=== PATIENT | female | born 1945 | race Caucasian/White ===

== ENCOUNTER 2019-09-04 15:09 | Inpatient (IN) ==
--- NOTE | 2019-09-04 15:40 | Diag Imaging Result Doc PS360 ---
FEMUR MIN 2 VIEWS LEFT - 09/04/2019 INDICATION: fall, pain TECHNIQUE: Four views COMPARISON: None FINDINGS: There is a badly displaced spiral fracture of the proximal left femur shaft, below the trochanters. No dislocation. 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 IMPRESSION: Badly displaced spiral fracture of the proximal left femur shaft. Electronically signed by Joshua Minor 09/04/2019 3:38 PM
--- NOTE | 2019-09-04 15:40 | Diag Imaging Result Doc PS360 ---
CHEST-1 VIEW - 09/04/2019 INDICATION: FALL COMPARISON: 07/25/2018 FINDINGS: The lungs are normally expanded and clear. Heart size and mediastinal contours are normal. No pneumothorax or pleural effusion. Stable right chest port in good position. IMPRESSION: Negative exam. Electronically signed by Joshua Minor 09/04/2019 3:37 PM
[2019-09-04] MEDS ORDERED: MORPHINE IV ONE (16:04)
--- NOTE | 2019-09-04 16:32 | EKG Report ---
Test Performed on : 09/04/2019 4:18:29 PM Test Reason : FX L FEMUR Blood Pressure : / mmHG Vent. Rate : 092 BPM Atrial Rate : 092 BPM P-R Int : 160 ms QRS Dur : 092 ms QT Int : 378 ms P-R-T Axes : 037 -23 074 degrees QTc Int : 467 ms Sinus rhythm. with occasional premature ventricular complexes. Possible Left atrial enlargement Left ventricular hypertrophy Nonspecific T wave abnormality Abnormal ECG When compared with ECG of 17-APR-2013 09:29, premature ventricular complexes. are now present Nonspecific T wave abnormality, worse in Lateral leads Unconfirmed Result
[2019-09-04 16:52] LABS: URINE SOURCE CATH
[2019-09-04 17:07] LABS: BILIRUBIN URINE NEGATIVE (NEGATIVE); BLOOD URINE NEGATIVE (NEGATIVE); COLOR YELLOW; GLUCOSE URINE NEGATIVE (NEGATIVE); KETONE URINE NEGATIVE (NEGATIVE); LEUKOCYTES URINE NEGATIVE (NEGATIVE); NITRITE URINE NEGATIVE (NEGATIVE); PROTEIN URINE NEGATIVE (NEGATIVE); SP GRAVITY URINE 1.011; TURBIDITY URINE CLEAR (CLEAR); UR EPITHELIAL CELLS <10 /HPF (<10); URINE BACTERIA NEGATIVE /HPF; URINE RBC <10 /HPF (<10); URINE WBC <10 /HPF (<10); UROBILINOGEN URINE NORMAL (NORMAL)
[2019-09-04 17:12] LABS: BASO# 0.05 X1000 (0.0-0.2); BASO% 0.4 % (0.0-0.8); EOS# 0.14 X1000 (0.0-0.7); EOS% 1.1 % (0.0-10.0); HEMATOCRIT 38.6 % (37.0-47.0); HEMOGLOBIN 12.5 g/dL (12.0-16.0); IMM GRAN# 0.05 X1000 (0.0-0.04); IMM GRAN% 0.4 % (0.0-0.5); LYMPH# 1.22 X1000 (1.2-3.4); LYMPH% 9.9 % (20.5-51.1); MCH 29.8 PG (27-31); MCHC 32.4 g/dL (33-37); MCV 91.9 FL (81-99); MONO# 0.67 X1000 (0.11-0.59); MONO% 5.4 % (1.7-9.3); MPV 9.1 FL (7.4-10.4); NEUT# 10.23 X1000 (1.4-6.5); NEUT% 82.8 % (42.2-75.2); PLT 314 X1000 (130-400); RDW 14.3 % (11.5-14.5); WBC 12.36 X1000 (4.8-10.8)
[2019-09-04 17:15] LABS: PROTIME 13.3 Seconds (11.0-16.0)
[2019-09-04 17:16] LABS: PTT 27.4 Seconds (22.3-41.8)
[2019-09-04 17:30] LABS: AGAP 15; ALB/GLOB RATIO 1.1; ALBUMIN 4.1 g/dL (3.5-5.0); ALKALINE PHOSPHATASE 75 U/L (32-104); BUN 14 mg/dL (8-22); CALCIUM 9.5 mg/dL (8.8-10.2); CHLORIDE 99 mmol/L (98-107); COSMO 283; CREATININE 0.9 mg/dL (0.5-0.9); ESTIMATED GFR > 60; GLUCOSE 114 mg/dL (70-104); GOT 39 U/L (10-30); GPT 26 U/L (10-36); POTASSIUM 3.4 mmol/L (3.5-5.1); SODIUM 141 mmol/L (136-145); TCO2 27 mmol/L (25-35); TOTAL BILIRUBIN 0.27 mg/dL (0.20-1.00); TOTAL PROTEIN 7.7 g/dL (6.3-8.3)
[2019-09-04] MEDS ORDERED: KEFZOL 1 GM/D5W 1 GM/50 ML IVPB IV ONE (18:00)
[2019-09-04] MEDS ORDERED: DILAUDID IV ONE (18:10)
--- NOTE | 2019-09-04 19:36 | ORTHOPAEDICS CONSULTATION ---
DATE: 09/04/2019 REASON FOR CONSULT: Left femur fracture. HISTORY OF PRESENT ILLNESS: Ms. Ayala is a 73-year-old female with a past medical history of metastatic breast cancer and hypertension, who presented to the ER today after a fall. She states that she was helping her up the stairs after his back surgery today when she felt a pop in her left leg and her leg gave way on her. She states that she has been having pain in this left leg for some time now and actually was going to make an appointment with Dr. Mornoy about it. She does have a history of breast cancer that was initially diagnosed in 2008 that had metastasized to a rib in 2011 as well as to her lung at a later date. She is undergoing treatment for this by Dr. Soria at this time. X-rays in the ER revealed a displaced spiral fracture of the proximal left femur shaft. Orthopedics has been consulted for this. PAST MEDICAL HISTORY: 1. Metastatic breast cancer. 2. Hypertension. PAST SURGICAL HISTORY: Is right mastectomy, hysterectomy, and port placement. ALLERGIES: She has no known drug allergies. FAMILY HISTORY: Noncontributory. REVIEW OF SYSTEMS: Positive for left hip pain that has been an ongoing problem for some time, pain in the left hip, but it has developed acutely since this fall. She denies any fever, chills, or vomiting. Otherwise review of systems is negative except as mentioned in the HPI. PHYSICAL EXAM: General: Ms. Ayala is lying on the ER stretcher at this time in no acute distress. Her left lower extremity is shortened and externally rotated. She has obvious swelling to her left hip region. There is no break in the skin. This area is very tender to even gentle palpation. She is able to dorsiflex and plantar flex her left foot without any problem. Her sensation is intact distally. She is alert and oriented x3. ASSESSMENT: Displaced spiral fracture of the left femur. PLAN: Ms. Ayala will be admitted to the hospitalist service this evening. She will be made NPO after midnight and receive a dose of Kefzol prior to surgery. Risks and benefits of surgery were discussed with Ms. Ayala to include risk of anesthesia, bleeding, blood clot, nerve injury, infection. Ms. Ayala wishes to proceed with surgery at this time. Dr. Monroy will be seeing her prior to surgery. Since she does have a past medical history of metastatic breast cancer, and has been having pain in this region for some time before this fall, and given the mechanism of her injury, we will send a specimen for pathology to ensure this is not a pathological fracture. All questions were answered. Dictated by KRYSTLE Ernst for Orestes Monroy MD cc: Orestes Monroy MD [facility]
[2019-09-04] MEDS ORDERED: TYLENOL PO PRN (20:23)
[2019-09-04] MEDS ORDERED: MORPHINE IV PRN (20:23)
[2019-09-04] MEDS: LIORESAL PO SCH (21:00)
[2019-09-04] MEDS: ZOLOFT PO SCH (21:00)
[2019-09-04] MEDS: ZOFRAN IV PRN (21:32)
[2019-09-05] MEDS ORDERED: NS 1,000 ML IV SCH (00:01)
--- NOTE | 2019-09-05 05:06 | HISTORY AND PHYSICAL ---
PRIMARY CARE PROVIDER: Bear Fuentes MD ONCOLOGIST: Dr. Soria. CHIEF COMPLAINT: [place] a pop in her left leg and then fell. HISTORY OF PRESENT ILLNESS: Ms. Ayala is a 73-year-old female with a past medical history of recurrent metastatic breast cancer. She reports she has had 3 bouts of breast cancer, 2 rounds of chemo as well as radiation treatment. She goes back for maintenance every 3 weeks. Hypertension. Reports today, she was helping her up the stairs after he had back surgery. She felt a pop in her left leg and then she fell. She did not hit her head. She denied any symptoms prior to falling. No dizziness. No chest pain. No shortness of breath. She denies any recent fever, chills, abdominal, urinary, or GI issues. She did report that she has been having some issues with pain in this left leg, and had been meaning to see an orthopedic about it. Imaging in the ER revealed a displaced spiral fracture of the proximal left femur shaft. Oncology was consulted. They have seen the patient, and will be doing surgery in the morning. We will continue with pain regimen. PAST MEDICAL HISTORY: Metastatic breast cancer and hypertension. PAST SURGICAL HISTORY: Right mastectomy, hysterectomy, and port placement. ALLERGIES: No known drug allergies. FAMILY HISTORY: Reviewed and noncontributory. HOME MEDICATIONS: 1. Zoloft 50 mg p.o. at bedtime. 2. Baclofen 2.5 mg p.o. b.i.d. 3. Femara 2.5 mg p.o. daily. 4. Losartan/hydrochlorothiazide 125 1 tab p.o. daily. 5. Lyrica 75 mg p.o. daily. REVIEW OF SYSTEMS: Twelve-point review of systems completely negative except for those mentioned in HPI. PHYSICAL EXAMINATION: VITAL SIGNS: Temperature 97 degrees, heart rate 97, respirations 16, blood pressure 148/87, and O2 is 94% on room air. GENERAL: Ms. Ayala is a pleasant 73-year-old female who is lying in her room in the bed in no acute distress. HEENT: Atraumatic, normocephalic. PERRL. NECK: Supple. Trachea midline. CARDIOVASCULAR: S1, S2 appreciated. No murmurs, gallops, or rubs noted. RESPIRATORY: Lung sounds clear bilaterally. GI: Soft, nontender, and nondistended. Positive bowel sounds 4 quadrants. EXTREMITIES: Lower extremities with bilateral bounding pulses. No signs of clubbing or cyanosis. : White. NEUROLOGIC: No focal deficits noted. DIAGNOSTICS: Femur x-ray. Badly displaced spiral fracture of the proximal left femur shaft. LABORATORY DATA: White count 12, hemoglobin and hematocrit 12 and 38, and platelet count 314,000. Sodium 141, potassium 3.4, BUN 14, creatinine 0.9, blood glucose 114. Two plasma lactates were negative. Urinalysis negative. ASSESSMENT AND PLAN: 1. Displaced spiral fracture of the left femur. The patient will be followed by Orthopedics. Dr. Monroy will do surgery in the morning. We will continue with antiemetics and pain regimen. Consult Branch Lending Manager for possible rehab placement. 2. Recurrent metastatic breast cancer followed by Dr. Soria. She is on q. 3 weeks maintenance. 3. Hypertension. Continue home regimen. 4. Mild hypokalemia. We will recheck in the morning. 5. Leukocytosis, likely reactive. No signs of infection. Dictated by KRYSTLE Eagle for Naveen Alfaro MD I have performed a face to face diagnostic evaluation. Labs/xrays- reviewed. Exam- Chest- clear, CV- regular. Ext- Left hip tenderness. A/P- Left femur fx- Admit, NPO, Pain control. Orthopedics consult. Dr. Alfaro cc: MD Orestes Abdullahi MD [facility] Ir[facility], MD [facility]
[2019-09-05] MEDS ORDERED: KEFZOL 1 GM/D5W 2 GM/100 ML IVPB IV ONE (06:00)
[2019-09-05] MEDS ORDERED: DILAUDID IV ONE (06:16)
[2019-09-05 07:25] LABS: BASO# 0.04 X1000 (0.0-0.2); BASO% 0.5 % (0.0-0.8); EOS# 0.12 X1000 (0.0-0.7); EOS% 1.4 % (0.0-10.0); HEMATOCRIT 34.7 % (37.0-47.0); IMM GRAN# 0.02 X1000 (0.0-0.04); IMM GRAN% 0.2 % (0.0-0.5); LYMPH# 0.97 X1000 (1.2-3.4); LYMPH% 11.2 % (20.5-51.1); MCH 29.5 PG (27-31); MCHC 31.7 g/dL (33-37); MONO% 8.1 % (1.7-9.3); MPV 8.8 FL (7.4-10.4); NEUT# 6.84 X1000 (1.4-6.5); NEUT% 78.6 % (42.2-75.2); PLT 301 X1000 (130-400); RBC 3.73 XMIL (4.2-5.4); RDW 14.2 % (11.5-14.5); WBC 8.69 X1000 (4.8-10.8)
--- NOTE | 2019-09-05 07:30 | ORTHOPAEDICS PROGRESS NOTE ---
DATE: 09/05/2019 SUBJECTIVE: The patient is a pleasant 73-year-old female who presented to the emergency room yesterday after sustaining a fall, who sustained a fall after feeling a pop in her left leg. She does report that she was experiencing some discomfort in the left leg over the last several weeks. She has been treated for metastatic breast cancer. She was in the emergency room. X-rays revealed a left displaced subtrochanteric femur fracture. She was admitted to the hospital and Orthopedic consultation was requested. She currently in some expected discomfort this morning. OBJECTIVE: On physical exam, the patient's left lower extremity is held in externally rotation position. She has an expected swelling. The compartments are soft. She has active dorsiflexion and plantar flexion distally. IMPRESSION: Left displaced spiral subtrochanteric femur fracture. PLAN: At this point, we discussed treatment options with the patient. At this time, would recommend to proceed with intramedullary nailing of the left femur. Risks and benefits of surgery were explained including the risks of anesthesia, , bleeding, infection, failure to relieve pain, postoperative stiffness, nerve injury, blood clots, and other imponderables. All questions were answered. We will plan on surgery later today. cc: MD Naveen Ramirez MD MTDD
[2019-09-05 07:44] LABS: AGAP 10; ALB/GLOB RATIO 1.1; ALBUMIN 3.6 g/dL (3.5-5.0); ALKALINE PHOSPHATASE 69 U/L (32-104); BUN 13 mg/dL (8-22); CALCIUM 8.1 mg/dL (8.8-10.2); CHLORIDE 99 mmol/L (98-107); COSMO 275; CREATININE 0.7 mg/dL (0.5-0.9); ESTIMATED GFR > 60; GLUCOSE 121 mg/dL (70-104); GOT 47 U/L (10-30); GPT 23 U/L (10-36); POTASSIUM 3.4 mmol/L (3.5-5.1); SODIUM 137 mmol/L (136-145); TCO2 28 mmol/L (25-35); TOTAL BILIRUBIN 0.29 mg/dL (0.20-1.00); TOTAL PROTEIN 6.9 g/dL (6.3-8.3)
[2019-09-05 08:11] LABS: URINE SOURCE CLEAN CATCH
[2019-09-05 08:17] LABS: URINE BACTERIA NEGATIVE /HFP; URINE EPITHELIAL CELLS <10 /HPF (<10); URINE RBC <10 /HPF (<10); URINE WBC <10 /HPF (<10)
[2019-09-05 08:18] LABS: BILIRUBIN URINE NEGATIVE (NEGATIVE); BLOOD URINE NEGATIVE (NEGATIVE); CLARITY CLEAR (CLEAR); COLOR YELLOW; GLUCOSE URINE NEGATIVE (NEGATIVE); KETONE URINE NEGATIVE (NEGATIVE); LEUKOCYTES URINE NEGATIVE (NEGATIVE); NITRITE URINE NEGATIVE (NEGATIVE); PROTEIN URINE 100 mg/dL (NEGATIVE); SP GRAVITY URINE 1.025; URINE CAST NONE SEEN /LPF; URINE CRYSTAL NONE SEEN /HPF; URINE YEAST NONE SEEN /HPF; UROBILINOGEN URINE 0.2 EU/dL (0.2-1.0)
[2019-09-05] MEDS: DILAUDID IV PRN ×3 (11:06→23:17)
[2019-09-05] MEDS ORDERED: KLOR-CON PO ONE (12:37)
[2019-09-05] MEDS ORDERED: DIPRIVAN 1% ONE ×3 (12:44→13:38)
[2019-09-05] MEDS ORDERED: FENTANYL ONE (12:46)
--- NOTE | 2019-09-05 13:05 | PROGRESS NOTE ---
DATE: 09/05/2019 SUBJECTIVE: The patient reports feeling fine. She is going to be taken to the OR soon for surgery. OBJECTIVE: Vital Signs: Temperature 98.3 degrees, heart rate 89 respiratory rate 18, blood pressure 143/66, O2 saturation 98% on 2 L nasal cannula. General examination: This is a this is 73-year-old female lying in bed, in no acute distress. Cardiovascular exam: S1, S2 heard. No murmurs, gallops, or rubs. Regular rate and rhythm. Respiratory exam: Clear bilaterally to auscultation. No work of breathing or using accessory muscles. Abdomen: Soft, nontender to palpation. Bowel sounds present. No organomegaly. Extremities: No clubbing, cyanosis, or edema. Peripheral pulses present in both legs. Neurological exam: Patient alert and oriented x3. Moves 4 extremities. LABORATORY DATA: Reviewed. ASSESSMENT AND PLAN: 1. Displaced spiral fracture of the left femur. The patient is going to be taken to the operating room by Orthopedics to fix this fracture. We will continue to monitor. Will check CBC daily. 2. Recurrent metastatic breast cancer followed by Dr. Soria. Aware. 3. Hypertension. Blood pressure is under control. Will continue with the same management. 4. Mild hypokalemia. Potassium is still pretty much low so we are going to provide potassium today and recheck BMP tomorrow. 5. Leukocytosis most likely reactive, that condition is completely resolved. cc: MD Naveen River MD
[2019-09-05] MEDS ORDERED: NEO-SYNEPHRINE ONE (13:40)
[2019-09-05] MEDS ORDERED: EPHEDRINE ONE (13:41)
[2019-09-05] MEDS ORDERED: ZOFRAN ONE (13:41)
[2019-09-05] MEDS ORDERED: OXY IR PO PRN (16:07)
[2019-09-05] MEDS ORDERED: MILK OF MAGNESIA PO PRN (16:07)
[2019-09-05] MEDS ORDERED: MORPHINE IV PRN (16:07)
[2019-09-05] MEDS ORDERED: HALDOL IV PRN (16:15)
[2019-09-05] MEDS ORDERED: BENADRYL ONE (16:17)
[2019-09-05] MEDS ORDERED: PERCOCET-5 ONE (16:35)
[2019-09-05] MEDS: DILAUDID ONE ×2 (16:36→16:43)
[2019-09-05] MEDS: NS 1,000 ML IV SCH (17:24)
[2019-09-05] MEDS: LIORESAL PO SCH ×2 (17:25→23:06)
[2019-09-05] MEDS: HYZAAR 50/12.5 MG PO SCH (17:25)
[2019-09-05] MEDS: LYRICA PO SCH (17:25)
[2019-09-05] MEDS: TYLENOL PO SCH ×2 (17:26→23:06)
[2019-09-05] MEDS: PATIENT'S OWN MED PO SCH (17:26)
[2019-09-05] MEDS ORDERED: ZOFRAN IV PRN (18:11)
--- NOTE | 2019-09-05 18:14 | OPERATIVE NOTE ---
PROCEDURE DATE: 09/04/2019 PREOPERATIVE DIAGNOSIS: Left displaced spiral subtrochanteric femur fracture, probable pathological fracture. POSTOPERATIVE DIAGNOSIS: Left displaced spiral subtrochanteric femur fracture, probable pathological fracture. PROCEDURE: Open reduction and intramedullary nailing of the left femur. SURGEON: Dr. Monroy. COMMISSARY WORKER: KRYSTLE Ernst who was necessary for proper positioning, manipulation of the extremity during the case and retraction, and improved efficiency. SECOND FIRST DYER: Kendall Sanchez RN. ANESTHESIA: Spinal. INTRAVENOUS FLUIDS: 1500 mL lactated Ringer's. One unit of packed red blood cells. ESTIMATED BLOOD LOSS: 700 mL. COMPLICATIONS: None. INDICATION: The patient is a pleasant, 73-year-old female with metastatic breast cancer who sustained a fall yesterday while stepping up steps. She states she felt a pop and fell to the ground. She developed immediate pain and discomfort. She did report she had been having some pain and discomfort in the left hip for some time now. She presented emergency room. X-rays revealed a spiral fracture of left proximal femur. Recommendation to proceed with intramedullary nailing of the left femur was offered. The risks and benefits of surgery were explained, including the risks of anesthesia, , bleeding, infection, failure to relieve pain, postoperative stiffness, nerve injury, blood clots, and other imponderables. All questions were answered. The patient wished to proceed with surgery. DETAILS OF OPERATION: The patient was taken to the operating room and underwent spinal anesthesia. After adequate anesthesia was obtained she is placed supine on the fracture table. Provisional reduction was then obtained. The left lower extremity was subsequently prepped and draped in the usual sterile fashion. The patient's proximal fragment was flexed and significantly displaced and therefore proceeded with open reduction. Lateral incision made at the site of the fracture. It was carried down through the iliotibial band and the elevation of vastus lateralis was performed. The fracture site was identified. In the intramedullary canal, a [place] was used and hemostats to obtain some of the marrow at the site of the fracture to be sent for pathology, as well as reaming subsequently. After the elevation and dissection of both fragments, reduction clamp was then placed. It had good position both AP lateral projections. After this had been performed, approximately 3 fingerbreadths proximal to the left greater trochanter, a lateral incision was made. Blunt dissection performed through the gluteus margaret. Superior guide pins were then placed on the tip of the greater trochanter. A guide pin was then placed and had good position on both AP and lateral projections. A starting reamer was then passed. Again some of the reamings will be sent to Pathology for further evaluation. The ball-tip guide pin was then advanced across the fracture site. The length of the nail was determined to be 380 mm. Sequential reaming was conducted to size 12- 1/2 in preparation for 11 mm diameter nail. An 11 x 380 mm nail was then passed over the ball-tip guide pin. It had good position in both AP and lateral projections. Had good reduction. Guide was then placed along through the outrigger guide, along the lateral proximal femur. Guide pin was then placed across the femoral neck and femoral head. Had good position in both AP lateral projections. Lateral cortex was reamed. This followed by a cannulated drill. A 90 mm helical blade was then advanced. Proximal set screw was tightened. Good position both AP and lateral projections. Attention was then turned to the distal femur. Using perfect [place] technique, two distal locking screws placed through 2 stab incisions. Good positioning. Final C-arm visualization showed good position of the hardware and good reduction of the fracture. The wounds were copiously irrigated. Number 1 Vicryl was used to repair the iliotibial band and the lateral wound at the site of the fracture in a running fashion. Number 1 Vicryl was used to repair the deep fascia and proximal wound. 2-0 Vicryl was then used to repair the two proximal wounds, and skin beryl were placed in all the wounds. Adaptic, sterile 4 x 4's, ABD pad, and tape was applied to the wounds. Patient tolerated the procedure well with no complications, transferred to recovery room in stable condition. cc: MD Naveen Ramirez MD MTDD
[2019-09-05] MEDS: ZOLOFT PO SCH (23:06)
[2019-09-05] MEDS: COLACE PO SCH (23:06)
[2019-09-05] MEDS: PERIDEX MT SCH (23:06)
[2019-09-05] MEDS: KEFZOL 2 GM/D5W 2 GM/50 ML IVPB IV SCH (23:16)
[2019-09-06] MEDS: TYLENOL PO SCH ×3 (02:24→16:46)
[2019-09-06] MEDS: NS 1,000 ML IV SCH (05:34)
[2019-09-06] MEDS: XARELTO PO SCH (05:44)
[2019-09-06] MEDS: KEFZOL 2 GM/D5W 2 GM/50 ML IVPB IV SCH ×3 (05:44→16:45)
--- NOTE | 2019-09-06 07:02 | ORTHOPAEDICS PROGRESS NOTE ---
DATE: 09/06/2019 SUBJECTIVE: The patient is a pleasant 73-year-old female who is 1 day status post open reduction and intramedullary nailing of the left femur. She is resting comfortably this morning. Her vital signs are stable. LABS: Pending. OBJECTIVE: Patient is resting comfortably this morning. On physical exam, patient's vital signs are stable. Her left lower extremity dressing is intact. Calf is soft. She has active dorsiflexion and plantar flexion. IMPRESSION: Postoperative day #1 status post open reduction intramedullary nailing of the left femur. PLAN: At this point, we will begin mobilization physical therapy. Stacker have been consulted for discharge planning, we will wait. All questions were answered. cc: MD Naveen Ramirez MD
[2019-09-06 07:57] LABS: HEMATOCRIT 32.4 % (37.0-47.0); MCH 28.8 PG (27-31); MCHC 30.9 g/dL (33-37); MCV 93.4 FL (81-99); RBC 3.47 XMIL (4.2-5.4); RDW 15.7 % (11.5-14.5); WBC 11.76 X1000 (4.8-10.8)
[2019-09-06 08:20] LABS: CALCIUM 7.5 mg/dL (8.8-10.2); CREATININE 1.1 mg/dL (0.5-0.9); POTASSIUM 4.3 mmol/L (3.5-5.1)
--- NOTE | 2019-09-06 10:44 | PROGRESS NOTE ---
DATE: 09/06/2019 SUBJECTIVE: Patient reports feeling fine. Reporting mild pain in the surgical area. OBJECTIVE: Vital Signs: Temperature 97.8 degrees, heart rate 89, respiratory rate 20, blood pressure 107/52, O2 saturation 90 percent on 2 L nasal cannula. General examination: This is a 73-year-old female, lying in bed in no acute distress. Cardiovascular: S1 and S2 heard. No murmurs, gallops, or rubs. Regular rate and rhythm. Respiratory exam: Clear bilaterally to auscultation. No work of breathing. Not using accessory muscles. Abdomen: Soft, nontender to palpation. Bowel sounds present. No organomegaly. Extremities: No clubbing, cyanosis, or edema. Peripheral pulses present in both legs. Neurological examination: Patient alert and oriented x3. Moves 4 extremities. LABORATORY DATA: Reviewed. ASSESSMENT AND PLAN: 1. A displaced spiral fracture of the left femur status post intramedullary nailing. Clinically stable. Orthopedics following this patient. 2. Recurrent metastatic breast cancer. Aware. Dr. Soria is his primary oncologist. 3. Hypertension. Blood pressure is under control. We will continue with the same management. 4. Hypokalemia. Stable. 5. Disposition: We will continue to monitor this patient closely. She is going to be discharged to rehabilitation once she is cleared by Orthopedics. cc: MD Naveen River MD
[2019-09-06] MEDS: PERIDEX MT SCH ×2 (12:23→20:33)
[2019-09-06] MEDS: DILAUDID IV PRN (12:23)
[2019-09-06] MEDS: HYZAAR 50/12.5 MG PO SCH (12:23)
[2019-09-06] MEDS: FEMARA PO SCH (12:24)
[2019-09-06] MEDS: FERROUS SULFATE PO SCH (12:24)
[2019-09-06] MEDS: LIORESAL PO SCH ×2 (12:25→20:34)
[2019-09-06] MEDS: LYRICA PO SCH (12:25)
[2019-09-06] MEDS: PATIENT'S OWN MED PO SCH (12:30)
[2019-09-06] MEDS: ZOLOFT PO SCH (20:33)
[2019-09-06] MEDS: COLACE PO SCH (20:33)
[2019-09-06] MEDS ORDERED: NS 1,000 ML IV SCH (23:45)
[2019-09-06 23:52] LABS: HEMATOCRIT 28.6 % (37.0-47.0); HEMOGLOBIN 9.1 g/dL (12.0-16.0)
[2019-09-07] MEDS: TYLENOL PO SCH ×3 (00:15→18:53)
[2019-09-07] MEDS: XARELTO PO SCH (05:12)
[2019-09-07 06:38] LABS: HEMATOCRIT 28.7 % (37.0-47.0); HEMOGLOBIN 9.3 g/dL (12.0-16.0); MCH 29.9 PG (27-31); MCHC 32.4 g/dL (33-37); MCV 92.3 FL (81-99); RBC 3.11 XMIL (4.2-5.4); RDW 15.1 % (11.5-14.5); WBC 12.46 X1000 (4.8-10.8)
[2019-09-07 06:52] LABS: AGAP 8; BUN 12 mg/dL (8-22); CALCIUM 7.7 mg/dL (8.8-10.2); CHLORIDE 95 mmol/L (98-107); COSMO 267; CREATININE 0.8 mg/dL (0.5-0.9); ESTIMATED GFR > 60; GLUCOSE 112 mg/dL (70-104); POTASSIUM 3.2 mmol/L (3.5-5.1); SODIUM 133 mmol/L (136-145); TCO2 30 mmol/L (25-35)
[2019-09-07] MEDS: PERIDEX MT SCH ×2 (11:40→21:12)
[2019-09-07] MEDS: FEMARA PO SCH (11:41)
[2019-09-07] MEDS: FERROUS SULFATE PO SCH (11:41)
[2019-09-07] MEDS: LYRICA PO SCH (11:41)
[2019-09-07] MEDS: LIORESAL PO SCH ×2 (11:41→21:11)
[2019-09-07] MEDS: HYZAAR 50/12.5 MG PO SCH (11:41)
[2019-09-07] MEDS: PATIENT'S OWN MED PO SCH (11:44)
[2019-09-07] MEDS ORDERED: KLOR-CON PO ONE (11:48)
[2019-09-07] MEDS ORDERED: CALCIUM GLUCONATE 2 GM in NS 100 ML IV ONE (12:30)
--- NOTE | 2019-09-07 12:48 | PROGRESS NOTE ---
DATE: 09/07/2019 SUBJECTIVE: Patient reports feeling fine. Pain in the surgical area is well controlled. OBJECTIVE: Vital Signs: Temperature 98 degrees, heart rate 90, respiratory rate 20, blood pressure 156/71, O2 saturation 96% on room air. General: This is a 73-year-old female lying in bed in no acute distress. Cardiovascular: S1 and S2 heard. No murmurs, gallops, or rubs. Regular rate and rhythm. Respiratory: Clear bilaterally to auscultation. No work of breathing or using accessory muscles. Abdomen: Soft, nontender to palpation. Bowel sounds present. No organomegaly. Extremities: No clubbing, cyanosis, or edema. Peripheral pulses present in both legs. Neurological: Patient is alert and oriented x3. Moves 4 extremities. LABORATORY DATA: Reviewed. ASSESSMENT AND PLAN: 1. Displaced spiral fracture of the left femur status post intramedullary nailing. Clinically, this patient is okay. Pain is under control. Orthopedics following this patient. We will follow recommendations. 2. Recurrent metastatic breast cancer. Aware. 3. Hypertension. Blood pressure is under control. We will continue with the same medication. 4. Hypokalemia, resolved. 5. Disposition. At this point, we will continue to monitor this patient closely. Hemoglobin is stable so will discharge her to rehab once she is cleared by Orthopedics. cc: MD Naveen River MD
[2019-09-07] MEDS: ZOLOFT PO SCH (21:11)
[2019-09-07] MEDS: COLACE PO SCH (21:11)
[2019-09-08] MEDS: TYLENOL PO SCH ×3 (00:52→17:14)
[2019-09-08] MEDS: XARELTO PO SCH (06:06)
[2019-09-08] MEDS: ZOFRAN IV PRN (07:14)
[2019-09-08 07:35] LABS: HEMATOCRIT 28.9 % (37.0-47.0); HEMOGLOBIN 9.1 g/dL (12.0-16.0); MCH 28.6 PG (27-31); MCHC 31.5 g/dL (33-37); MCV 90.9 FL (81-99); MPV 9.2 FL (7.4-10.4); RBC 3.18 XMIL (4.2-5.4); RDW 14.8 % (11.5-14.5); WBC 10.59 X1000 (4.8-10.8)
[2019-09-08 07:53] LABS: AGAP 11; BUN 11 mg/dL (8-22); CALCIUM 8.5 mg/dL (8.8-10.2); CHLORIDE 99 mmol/L (98-107); COSMO 276; CREATININE 0.6 mg/dL (0.5-0.9); ESTIMATED GFR > 60; GLUCOSE 122 mg/dL (70-104); POTASSIUM 3.5 mmol/L (3.5-5.1); SODIUM 138 mmol/L (136-145); TCO2 28 mmol/L (25-35)
[2019-09-08] MEDS: HYZAAR 50/12.5 MG PO SCH (09:12)
[2019-09-08] MEDS: LIORESAL PO SCH ×2 (09:12→23:07)
[2019-09-08] MEDS: PERIDEX MT SCH ×2 (09:12→23:07)
[2019-09-08] MEDS: FEMARA PO SCH (09:13)
[2019-09-08] MEDS: LYRICA PO SCH (09:13)
[2019-09-08] MEDS: PATIENT'S OWN MED PO SCH (09:16)
[2019-09-08] MEDS: FERROUS SULFATE PO SCH (09:18)
--- NOTE | 2019-09-08 10:28 | ORTHOPAEDICS PROGRESS NOTE ---
DATE: 09/08/2019 SUBJECTIVE: Ms. Ayala states that she is feeling okay this morning, and she has not been in very much pain. She has not walked with Physical Therapy yet, but states that she has gotten up to the bedside commode. She is status post day 3 of an intramedullary nailing of the left femur, as well as an open reduction. Her vital signs are stable this morning. Her labs reveal hemoglobin and hematocrit of 9 and 28 this morning. OBJECTIVE: She is resting comfortably in bed this morning. She denies any complaints. Her dressings to her left lower extremity are intact and with no active drainage. There is no redness surrounding her wounds to suggest active infection at this time. Her calf is soft, and she has active dorsiflexion and plantar flexion of her left foot. Her sensation is intact distally. Her extremity is no longer shortened nor externally rotated. IMPRESSION: Postoperative day 3, status post open reduction and intramedullary nailing of the left femur. PLAN: At this point, Ms. Ayala can mobilize with Physical Therapy and be partial weightbearing. I believe she is due to be discharged to rehab either today or tomorrow. She is to follow up in office in 3 to 4 weeks, and her beryl can be discontinued in 10 days. All of her questions were answered this morning. Dictated by KRYSTLE Ernst for Orestes Monroy MD cc: MD Naveen Ramirez MD
--- NOTE | 2019-09-08 12:46 | PROGRESS NOTE ---
DATE: 09/08/2019 SUBJECTIVE: The patient reports feeling fine. No other complaints noted. OBJECTIVE: Vital Signs: Temperature 97.7 degrees, heart rate 92, respiratory rate 18, blood pressure 145/64, O2 saturation 97% on room air. General: This is a 73-year-old, female, lying in bed in no acute distress. Cardiovascular: S1, S2 heard. No murmurs, gallops, or rubs. Regular rate and rhythm. Respiratory: Clear bilaterally to auscultation. No work of breathing or using accessory muscles. Abdomen: Soft, nontender to palpation. Bowel sounds present. No organomegaly. Extremities: No clubbing, cyanosis, or edema. Peripheral pulses present in both legs. Neurological: The patient is alert and oriented x3. Moves all 4 extremities. LABORATORY DATA: Reviewed. ASSESSMENT AND PLAN: 1. Displaced spiral fracture of the left femur, status post intramedullary nailing. Clinically, this patient is fine. She has been clean from Orthopedics, so at any point she can be discharged from their standpoint. 2. Recurrent metastatic breast cancer. Aware. 3. Hypertension. Blood pressure is under control. Will continue with the same medications. 4. Hypokalemia, resolved. 5. Disposition. At this point, we have informed social work job titles that we need a rehab bed. Once we get one, will discharge this patient. cc: Sloan Fonseca MD
[2019-09-08] MEDS: COLACE PO SCH (23:07)
[2019-09-08] MEDS: NORCO-5 PO PRN (23:07)
[2019-09-08] MEDS: ZOLOFT PO SCH (23:07)
[2019-09-09] MEDS: TYLENOL PO SCH ×2 (01:38→09:57)
[2019-09-09 06:35] LABS: HEMATOCRIT 29.1 % (37.0-47.0); HEMOGLOBIN 9.4 g/dL (12.0-16.0); MCH 29.8 PG (27-31); MCHC 32.3 g/dL (33-37); MCV 92.4 FL (81-99); MPV 8.8 FL (7.4-10.4); RBC 3.15 XMIL (4.2-5.4); RDW 14.9 % (11.5-14.5); WBC 8.97 X1000 (4.8-10.8)
--- NOTE | 2019-09-09 06:51 | ORTHOPAEDICS PROGRESS NOTE ---
DATE: 09/09/2019 SUBJECTIVE: The patient is a pleasant, 73-year-old female who is 4 days status post open reduction and intramedullary nailing of the left femur. She is currently resting comfortably. OBJECTIVE: On physical examination of the patient's left lower extremity, her wound looks good. There are no signs or symptoms of infection. She has active dorsiflexion and plantar flexion. Her hemoglobin and hematocrit from yesterday were 9.1 and 28.9. IMPRESSION: Postoperative day #4 status post open reduction and intramedullary nailing of the left femur. PLAN: At this point, social services analyst have been consulted for discharge planning. Patient will continue partial weightbearing to the left lower extremity. All questions were answered. She is stable from an orthopedic standpoint. cc: Orestes Monroy MD
[2019-09-09] MEDS: XARELTO PO SCH (07:26)
[2019-09-09] MEDS: LIORESAL PO SCH (08:35)
[2019-09-09] MEDS: PERIDEX MT SCH (08:35)
[2019-09-09] MEDS: FERROUS SULFATE PO SCH (08:35)
[2019-09-09] MEDS: LYRICA PO SCH (08:36)
[2019-09-09] MEDS: HYZAAR 50/12.5 MG PO SCH (08:36)
[2019-09-09] MEDS: PATIENT'S OWN MED PO SCH (08:37)
[2019-09-09] MEDS: FEMARA PO SCH (09:57)
[2019-09-09 11:36] VITALS: BP 124/57
--- NOTE | 2019-09-09 13:06 | DISCHARGE SUMMARY ---
ADMISSION DATE: 09/04/2019 DISCHARGE DATE: 09/09/2019 DIAGNOSES: 1. Displaced spiral fracture of the left femur, status post intramedullary nailing. 2. Recurrent metastatic breast cancer. 3. Hypertension. 4. Hypokalemia, resolved. CONSULTS: Dr. Tania Monroy. DIAGNOSTICS: 1. On 09/04/2019, femur x-ray revealed badly displaced spiral fracture of the proximal left femur shaft. 2. Chest x-ray revealed negative exam. Lungs are normally expanded and clear. Heart size and mediastinal contours are normal. No pneumothorax or pleural effusion. Stable right chest port in good position. MICROBIOLOGY: Urine culture revealed no growth. PROCEDURES: On 09/05/2019, open reduction and intramedullary nailing of the left femur. HOSPITAL COURSE: Ms. Ayala presented to the emergency room after falling and feeling a pop in her left leg. She was found to have a displaced spiral fracture of the proximal left femur. She underwent open reduction and intramedullary nailing of the left femur on 09/04/2019. She has done well. She has been mobilizing with physical therapy and is ready for rehab. Electrolytes were trended and repleted as appropriate throughout the hospitalization. DISCHARGE VITAL SIGNS: Blood pressure is 124/57, with a heart rate of 88, respirations 17, temperature is 98.2 degrees oral, with room air saturations 95 to 97 percent. DISCHARGE PHYSICAL EXAMINATION: Cardiovascular: Regular rate and rhythm. S1 and S2 are appreciated. No murmurs. Peripheral pulses are palpable x4 extremities. Pulmonary: Breath sounds are clear with no increased work of breathing noted. Chest rises and falls symmetric with respiration. Gastrointestinal: Abdomen is soft, nontender, nondistended, with bowel sounds in all 4 quadrants. Neurologic: She is alert and oriented x3. Extremities: No clubbing, cyanosis, or edema. She reports calves are nontender. DISCHARGE MEDICATIONS: 1. Zoloft 50 mg p.o. at bedtime. 2. Baclofen 2.5 p.o. b.i.d. 3. Letrozole 2.5 p.o. daily. 4. Losartan/hydrochlorothiazide 100/25 one p.o. daily. 5. Colace 200 mg p.o. at bedtime. 6. Ferrous sulfate 325 p.o. with breakfast. 7. Lyrica 75 mg p.o. daily. 8. Milk of magnesia 30 mL p.o. daily p.r.n. 9. Winfred 5 q.6 hours p.r.n. pain. 10. Xarelto 10 mg p.o. daily FOLLOWUP: 1. Dr. Monroy in 2 weeks. 2. She is being discharged and transferred to [facility] in stable condition for rehab. TIME SPENT: This is a greater than 30 minute discharge. Dictated by KRYSTLE Rai for Sloan Fonseca MD Addendum: Patient seen and examined by myself. Agree with KRYSTLE note. It reflects my assessment and plan. Patient is being discharged in stable condition. Will be sent to rehab. cc: KRYSTLE Rai MD [facility] SYSTEMRandell
[2019-09-09] MEDS: NORCO-5 PO PRN (13:37)
== END 2019-09-09 13:54 | DRG 481 ==
LOC: SUPCPDRO → ED 15:09 → SUATTDRO 22:14 → 4N 22:14
PROVIDERS: ATTEND Internal Medicine